=== PATIENT | male | born 1980 ===

== ENCOUNTER 2024-09-23 15:27 | Inpatient (IN) | payer SELFPAY ==
--- OUTSIDE RECORDS SUMMARY | 2024-09-22 11:45 | XMS_ITS | Encounter Summary ---
Author Organization [facility] Address [id number] [place] [id number] Care Team Providers Care Pick Up Name Role Phone Physician, No Pcp Primary Care Provider Unavaila ble Reason for Visit * Reason Comments Suicidal X 2 weeks with plan to overdose on medications Encounter Details Date Type Department Care Team ([facility] st Contact Info) Description 09/22/2024 11:45 AM EDT - 09/23/2024 3:11 PM EDT Emergency [facility] Emergency [address] [place] [id number] Ajit Hall MD [address] [place] [address] Baljeet Dhillon MD [address] [place] [address] Yumi Vick DO [address] [place] [address] Suicidal ideation (Primary Dx) Discharge Disposition: Another Health Care Institution Not Defined Social History Tobacco Use Types Packs/Day Years Used Date Smoking Tobacco: Never Assessed Sex and Gender Information Value Date Recorded Sex Assigned at Not on file Legal Sex Male 1:52 PM EDT Gender Identity Not on file Sexual Orientation Not on file documented as of this encounter Last Filed Vital Signs Vital Sign Reading Time Taken Comments Blood Pressure 135/86 09/23/2024 1:11 PM EDT Pulse 76 09/23/2024 1:11 PM EDT Temperature 36.3 C (97.3 F) 09/23/2024 1:11 PM EDT Respiratory Rate 16 09/23/2024 1:11 PM EDT Oxygen Saturation 98% 09/23/2024 1:11 PM EDT Inhaled Oxygen Concentration - - Weight 116 kg (256 lb) 09/22/2024 12:38 PM EDT Height 177.8 cm (5' 10 ) 09/22/2024 12:38 PM EDT Body Mass Index 36.73 09/22/2024 12:38 PM EDT documented in this encounter Functional Status * Are you deaf or do you have serious difficulty hearing? Answer Date of Assessment Author No 09/22/2024 8:44 PM EDT Michael Strange RN * Are you blind or do you have serious difficulty seeing, even when wearing glasses? Answer Date of Assessment Author No 09/22/2024 8:44 PM EDT Michael Strange RN * Do you have serious difficulty walking or climbing stairs? Answer Date of Assessment Author No 09/22/2024 8:44 PM EDT Michael Strange RN * Do you have serious difficulty dressing or bathing? Answer Date of Assessment Author No 09/22/2024 8:44 PM EDT Michael Strange RN * Because of a physical, mental, or emotional condition, do you have serious difficulty doing errandsalone such as visiting the doctor? Answer Date of Assessment Author No 09/22/2024 8:44 PM EDT Michael Strange RN documented as of this encounter Mental Status * Because of a physical, mental, or emotional condition, do you have serious difficulty concentrating, remembering, or making decisions? (5 years old or older) Answer Entry Date Author No 09/22/2024 8:44 PM EDT Michael Strange RN documented in this encounter Medications at Time of Discharge amLODIPine (NORVASC) 10 mg tablet Take 1 tablet (10 mg total) by mouth 1 (one) time each day. 90 each 08/17/2024 11/15/2024 documented as of this encounter Discharge Disposition Disposition Code Departure Means Destination Comment s Another Health Care Institution Not Defined [facility] BLS crew to transport pt to [facility]. RN to RN report given over the phone to TJ Gardiner. Dr. Vaughn is accepting physician. Pt ambulatory to EMS stretcher, departed ED in no acute distress. documented in this encounter Progress Notes * Ramona Dunn RN - 09/23/2024 10:18 AM EDT Pt given toiletries and clean hospital gown to change into. Pt escorted to bathroom and completed gown change and oral hygiene. All toiletries returned intact to this RN and locked with pt's other belongings. Dirty gown received from pt and placed in dirty linen bin. * Racheal Nieves RN - 09/22/2024 11:53 AM EDT BIBA from home with SI x 2 weeks. Recently un housed, reported arguments with ex . Hx of anxiety, depression. Increased feelings of hopelessness, endorses auditory hallucinations. Plan to overdose on medications, ems reported pt had a gun yesterday and wanted to end his life with it. Pt did notfollow through on plan. Pt calm and cooperative for ems. On section 12 from [facility]. * Ajit Hall MD - 09/22/2024 11:38 AM EDT Images from the original note were not included. [facility] EMERGENCY EMERGENCY DEPARTMENT ENCOUNTER CHIEF COMPLAINT Chief Complaint Patient presents with Suicidal X 2 weeks with plan to overdose on medications HISTORY OF PRESENT ILLNESS 44-year-old male with history of GERD, anxiety, depression here for suicidal thoughts. Patient havehistory of concerned about harming himself. Was sent in from [facility] for inpatient psych. Currently, patient complaining of some mild epigastric pain, has history of GERD. No vomiting or diarrhea. PAST MEDICAL HISTORY No past medical history on file. SURGICAL HISTORY No past surgical history on file. CURRENT MEDICATIONS Previous Medications AMLODIPINE (NORVASC) 10 MG TABLET Take 1 tablet (10 mg total) by mouth 1 (one) time each day. ALLERGIES Patient has no known allergies. FAMILY HISTORY No family history on file. SOCIAL HISTORY Social History Socioeconomic History Marital status: Single Spouse name: Not on file Number of children: Not on file Years of education: Not on file Highest education level: Not on file Occupational History Not on file Tobacco Use Smoking status: Not on file Smokeless tobacco: Not on file Substance and Sexual Activity Alcohol use: Not on file Drug use: Not on file Sexual activity: Not on file Other Topics Concern Not on file Social History Narrative Not on file PHYSICAL EXAM Vitals: 09/22/24 1238 BP: (!) 146/98 BP Location: Right arm Patient Position: Sitting Pulse: 83 Resp: 18 Temp: 36.8 ??C (98.2 ??F) TempSrc: Oral SpO2: 94% Weight: 116 kg (256 lb) Height: 1.778 m (70 ) Physical Exam Vitals reviewed. Constitutional: General: He is not in acute distress. Appearance: Normal appearance. He is not ill-appearing. HENT: Head: Normocephalic and atraumatic. Right Ear: External ear normal. Nose: Nose normal. Mouth/Throat: Mouth: Mucous membranes are moist. Pharynx: Oropharynx is clear. Eyes: Extraocular Movements: Extraocular movements intact. Pupils: Pupils are equal, round, and reactive to light. Cardiovascular: Rate and Rhythm: Normal rate and regular rhythm. Pulses: Normal pulses. Heart sounds: Normal heart sounds. Pulmonary: Effort: Pulmonary effort is normal. No respiratory distress. Breath sounds: Normal breath sounds. Abdominal: General: Abdomen is flat. There is no distension. Palpations: Abdomen is soft. Tenderness: There is no abdominal tenderness. Musculoskeletal: General: No swelling or deformity. Normal range of motion. Cervical back: Normal range of motion. Skin: General: Skin is warm and dry. Capillary Refill: Capillary refill takes less than 2 seconds. Neurological: General: No focal deficit present. Mental Status: He is alert and oriented to person, place, and time. Cranial Nerves: No cranial nerve deficit. Sensory: No sensory deficit. Motor: No weakness. DIAGNOSTIC RESULTS Based on the patient's history and physical exam the following labs and radiology studies were ordered in order to evaluate, work-up and determine best course of treatment for the patient. The studies are independently interpreted by me as follow here or in the MDM section or ED course section: Labs Reviewed ACETAMINOPHEN LEVEL - Abnormal Result Value Acetaminophen Level <2.0 (*) ETHANOL - Normal Ethanol Level 5 SALICYLATE LEVEL - Normal Salicylate Level 3.0 CBC AND DIFFERENTIAL Narrative: The following orders were created for panel order CBC and differential. Procedure Abnormality Status --------- ------ CBC auto differential[[id number]] Final result Please view results for these tests on the individual orders. CBC WITH AUTO DIFFERENTIAL WBC 9.7 RBC 5.40 Hemoglobin 15.0 Hematocrit 44.4 MCV 82.7 MCH 27.9 MCHC 33.8 RDW 12.8 Platelets 337 MPV 9.3 NRBC 0.0 NRBC Absolute 0.00 Neutrophils Relative 65.8 Lymphocytes Relative 24.5 Monocytes Relative 5.5 Eosinophils Relative 3.4 Basophils Relative 0.5 Immature Granulocytes Relative 0.3 Neutrophils Absolute 6.37 Lymphocytes Absolute 2.37 Monocytes Absolute 0.53 Eosinophils Absolute 0.33 Basophils Absolute 0.05 Immature Granulocytes Absolute 0.03 COMPREHENSIVE METABOLIC PANEL DRUG ABUSE SCREEN 8A PANEL, URINE BUPRENORPHINE SCREEN, URINE PHENCYCLIDINE, URINE METHADONE SCREEN, URINE No orders to display I personally reviewed the patient's images and agree with radiologist interpretation unless otherwise noted here or in ED course or MDM section. EMERGENCY DEPARTMENT COURSE and DIFFERENTIAL DIAGNOSIS/MDM: Clinical Impressions as of 09/22/241340 Suicidal ideation MDM Patient here for SI. Initial vital signs are interpreted by myself as normal. Patient given famotidine for GERD. Lab work unremarkable. Patient pending placement. Procedures Ajit Hall MD 09/22/24 1341 The patient is being signed out at the end of shift to the oncoming provider, Dr. Baljeet Dhillon Initial work up, treatment and stabilization is documented above Ongoing monitoring of patient in place. Patient is pending placement CONSULTS: None FINAL IMPRESSION DIAGNOSES: 1. Suicidal ideation Ajit Hall MD (electronically signed) 2:33 PM EDT 09/22/24 Ajit Hall MD 09/22/24 9433 * Yumi Vick DO - 09/22/2024 11:38 AM EDT ASSUMED CARE NOTE Patient care endorsed to me by Dr. Dhillon Patient is a 44-year-old male with history of anxiety and depression being evaluated for concern ofsuicidal ideation. Please see previous providers notes for details. Plan at signout is patient has been medically cleared and pending evaluation by crisis and further recommendations. On my evaluation patient has resting comfortably on stretcher monitor suicidal precautions visitingwith his daughter currently. Asymptomatic cardiac symptoms. However vital signs are notable for hypertension. Workup reveals positive urine drug screen for cocaine and cannabinoids. Unremarkable chemistries and CBC without evidence of endorgan damage. I have obtained a twelve-lead EKG and is my independent impression that this is normal sinus rhythmwith ventricular rate 92 bpm. Normal axis. Prolonged QT of 378 ms. No evidence of acute myocardial ischemia or infarction. Patient previously received amlodipine 10 mg. This time given 0.2 mg of Catapres orally. Behavioral health has recommended inpatient therapy. He has been accepted to [place] under Dr. Vaughn. Patient is stable for transfer. IMPRESSION: Suicidal ideations DISPOSITION: Transfer to another facility Yumi Vick DO 09/23/24 1304 * Sunshine Suh - 09/22/2024 11:20 AM EDT Assessed in the community by [facility] and found appropriate for inpatient level of care. Patient reports panic attacks, depression, anxiety. Passive SI doesn't want to live anymore . Patient has a history of trauma, is homeless, daily cocaine use. documented in this encounter Plan of Treatment Pending Results Name Type Priority Associated Diagnoses Date /Time ECG 12 lead ECG STAT 09/23/2024 10 :46 AM EDT documented as of this encounter Procedures Procedure Name Priority Date/Time Associated Diagnosis Comments URINALYSIS WITH REFLEX MICROSCOPIC STAT 09/23/2024 11:58 AM EDT URINALYSIS WITH REFLEX MICROSCOPIC STAT 09/23/2024 11:58 AM EDT ECG 12-LEAD STAT 09/23/2024 10:46 AM EDT DRUG ABUSE SCREEN 8A PANEL, URINE STAT 09/22/2024 2:17 PM EDT BUPRENORPHINE SCREEN, URINE STAT 09/22/2024 2:17 PM EDT METHADONE SCREEN, URINE STAT 09/22/2024 2:17 PM EDT PHENCYCLIDINE, URINE STAT 09/22/2024 2:17 PM EDT CBC WITH AUTO DIFFERENTIAL STAT 09/22/2024 12:40 PM EDT CBC AND DIFFERENTIAL STAT 09/22/2024 12:40 PM EDT ETHANOL STAT 09/22/2024 12:40 PM EDT ACETAMINOPHEN LEVEL STAT 09/22/2024 1 2:40 PM EDT SALICYLATE LEVEL STAT 09/22/2024 12:4 0 PM EDT COMPREHENSIVE METABOLIC PANEL STAT 09/22/2024 12:40 PM EDT documented in this encounter Results * (ABNORMAL) Urinalysis with reflex microscopic (09/23/2024 11:58 AM EDT) [facility] Specific [place] Urine 1.018 1.003 - 1.030 LAB URINALYSIS - AUTOMATED METHOD 09/23/2024 12:13 PM [facility] pH, Urine 8.0 5.0 - 8.0 pH LAB URINALYSIS - AUTOMATED METHOD 09/23/2024 12:13 PM [facility] Leukocytes, Urine Negative Negative LAB URINALYSIS - AUTOMATED METHOD 09/23/2024 12:13 PM [facility] Nitrite, Urine Negative Negative LAB URINALYSIS - AUTOMATED METHOD 09/23/2024 12:13 PM [facility] Protein, Urine Negative <=Trace mg/dL LAB URINALYSIS - AUTOMATED METHOD 09/23/2024 12:13 PM [facility] Glucose, Urine 100(A) Negative mg/dL LAB URINALYSIS - AUTOMATED METHOD 09/23/2024 12:13 PM EDT [facility] Ketones, Urine Negative Negative mg/dL LAB URINALYSIS - AUTOMATED METHOD 09/23/2024 12:13 PM EDT [facility] Urobilinogen, Urine 1.0 0.2 - 1.0 mg/dL LAB URINALYSIS - AUTOMATED METHOD 09/23/2024 12:13 PM EDT [facility] Bilirubin, Urine Negative Negative LAB URINALYSIS - AUTOMATED METHOD 09/23/2024 12:13 PM EDT [facility] Blood, Urine Negative Negative LAB URINALYSIS - AUTOMATED METHOD 09/23/2024 12:13 PM EDT [facility] Urine Urine specimen obtained by clean catch procedure / Unknown Non-blood Collection / Unknown 09/23/2024 11:58 AM EDT 09/23/2024 12:09 PM EDT us Yumi Vick DO LAB URINE ORDERABLES Final Re sult [facility] [address] [place] [address], [place] [phone] * Methadone, urine (09/22/2024 2:17 PM EDT) Methadone Screen, Urine Negative Negative LAB CHEMISTRY METHOD 09/22/2024 3:14 PM EDT [facility] Comment: Assay cutoff 300 ng/mL Semi-quantitative assay for screening purposes only. Unconfirmed screening result should not be used for non-medical purposes. *ALTERNATE METHOD CONFIRMATION DONE UPON REQUEST ONLY* Urine Urine specimen obtained by clean catch procedure / Unknown Non-blood Collection / Unknown 09/22/2024 2:17 PM EDT 09/22/2024 2:41 PM EDT Ajit Hall MD LAB URINE ORDERABLES Final Resul t [facility] [address] [place] [address], [place] [phone] * Phencyclidine, urine (09/22/2024 2:17 PM EDT) PCP Scrn, Ur Negative Negative LAB CHEMISTRY METHOD 09/22/2024 3:14 PM EDT [facility] Comment: Assay cutoff 25 ng/mL Semi-quantitative assay for screening purposes only. Unconfirmed screening result should not be used for non-medical purposes. *ALTERNATE METHOD CONFIRMATION DONE UPON REQUEST ONLY* Urine Urine specimen obtained by clean catch procedure / Unknown Non-blood Collection / Unknown 09/22/2024 2:17 PM EDT 09/22/2024 2:41 PM EDT us Ajit Hall MD LAB URINE ORDERABLES Final Resul t Performing Organization Address [facility] de Phone Number [facility] [address] [place] [address], [place] [phone] * Buprenorphine screen, urine (09/22/2024 2:17 PM EDT) Buprenorphine Screen Urine Negative Negative LAB CHEMISTRY METHOD 09/22/2024 3:14 PM EDT [facility] Urine Urine specimen obtained by clean catch procedure / Unknown Non-blood Collection / Unknown 09/22/2024 2:17 PM EDT 09/22/2024 2:41 PM EDT Narrative [facility] - 09/22/2024 3:14 PM EDT Assay cutoff 5 ng/mL Semi-quantitative assay for screening purposes only. Unconfirmed screening result should not be used for non-medical purposes. *ALTERNATE METHOD CONFIRMATION DONE UPON REQUEST ONLY* us Ajit Hall MD LAB URINE ORDERABLES Final Resul t Performing Organization Address [facility]/ZIP Co de Phone Number [facility] [address] [place] [address], [place] [phone] * (ABNORMAL) Drug abuse screen 8a panel, urine (09/22/2024 2:17 PM EDT) [facility] Amphetamine Screen, Ur Negative Negative LAB CHEMISTRY METHOD 5 3:14 PM [facility] Comment:Certain OTC medicati ons containing ephedrine, phenylephrine, pseudoephedrine and phenylpropanolamine can cause false positive results. Barbiturate Screen, Ur Negative Negative LAB CHEMISTRY METHOD 5 3:14 PM EDT [facility] Benzodiazepine Screen, Ur Negative Negative LAB CHEMISTRY METHOD 5 3:14 PM [facility] Cocaine Screen, Ur Positive(A ) Negative LAB CHEMISTRY METHOD 5 3:14 PM [facility] Opiate Screen, Ur Negative Negative LAB CHEMISTRY METHOD 5 3:14 PM [facility] Cannabinoid (THC) Screen, Ur Positive(A ) Negative LAB CHEMISTRY METHOD 3:14 PM [facility] Comment:Specimens from patie nts taking pantoprazole sodium (Protonix) have been shown to produce false positive results. Oxycodone Screen, Ur Negative Negative LAB CHEMISTRY METHOD 5 3:14 PM [facility] Fentanyl, Ur Negative Negative LAB CHEMISTRY METHOD 5 3:14 PM [facility] Urine Urine specimen obtained by clean catch procedure / Unknown Non-blood Collection / Unknown 09/22/2024 2:17 PM EDT 09/22/2024 2:41 PM EDT [facility] - 09/22/2024 3:14 PM EDT Assay cutoffs: Amphetamines 1000 ng/mL Barbiturates 200 ng/mL Benzodiazepines 200 ng/mL Cocaine 300 ng/mL Fentanyl 1 ng/mL Opiates 300 ng/mL Oxycodone 100 ng/mL THC 50 ng/mL Semi-quantitative assay for screening purposes only. Unconfirmed screening result should not be used for non-medical purposes. *ALTERNATE METHOD CONFIRMATION DONE UPON REQUEST ONLY* us Ajit Hall MD LAB URINE ORDERABLES Final Resul t [facility] [address] [place] [address], [place] [phone] * CBC auto differential (09/22/2024 12:40 PM EDT) WBC 9.7 4.8 - 10.8 K/mcL LAB HEMETOLOGY METHOD 09/22/2024 1:12 PM EDT [facility] RBC 5.40 4.50 - 5.50 M/mcL LAB HEMETOLOGY METHOD 09/22/2024 1:12 PM EDT [facility] Hemoglobin 15.0 13.5 - 17.5 g/dL LAB HEMETOLOGY METHOD 09/22/2024 1:12 PM EDT [facility] Hematocrit 44.4 42.0 - 54.0 % LAB HEMETOLOGY METHOD 09/22/2024 1:12 PM EDT [facility] MCV 82.7 79.0 - 98.0 FL LAB HEMETOLOGY METHOD 09/22/2024 1:12 PM EDT [facility] MCH 27.9 27.0 - 32.0 pcg LAB HEMETOLOGY METHOD 09/22/2024 1:12 PM EDT [facility] MCHC 33.8 32.0 - 37.0 g/dL LAB HEMETOLOGY METHOD 09/22/2024 1:12 PM EDT [facility] RDW 12.8 11.0 - 15.0 % LAB HEMETOLOGY METHOD 09/22/2024 1:12 PM EDT [facility] Platelets 337 130 - 400 K/mcL LAB HEMETOLOGY METHOD 09/22/2024 1:12 PM EDT [facility] MPV 9.3 7.0 - 11.0 FL LAB HEMETOLOGY METHOD 09/22/2024 1:12 PM EDT [facility] NRBC 0.0 <1.0 % LAB HEMETOLOGY METHOD 09/22/2024 1:12 PM [facility] NRBC Absolute 0.00 <0.10 K/mcL LAB HEMETOLOGY METHOD 09/22/2024 1:12 PM [facility] Neutrophils Relative 65.8 % LAB HEMETOLOGY METHOD 09/22/2024 1:12 PM [facility] Lymphocytes Relative 24.5 % LAB HEMETOLOGY METHOD 09/22/2024 1:12 PM [facility] Monocytes Relative 5.5 % LAB HEMETOLOGY METHOD 09/22/2024 1:12 PM [facility] Eosinophils Relative 3.4 % LAB HEMETOLOGY METHOD 09/22/2024 1:12 PM [facility] Basophils Relative 0.5 % LAB HEMETOLOGY METHOD 09/22/2024 1:12 PM [facility] Immature Granulocytes Relative 0.3 % LAB HEMETOLOGY METHOD 09/22/2024 1:12 PM [facility] Neutrophils Absolute 6.37 1.50 - 7.00 K/mcL LAB HEMETOLOGY METHOD 09/22/2024 1:12 PM [facility] Lymphocytes Absolute 2.37 1.00 - 5.00 K/mcL LAB HEMETOLOGY METHOD 09/22/2024 1:12 PM [facility] Monocytes Absolute 0.53 0.20 - 1.00 K/mcL LAB HEMETOLOGY METHOD 09/22/2024 1:12 PM [facility] Eosinophils Absolute 0.33 0.00 - 0.50 K/mcL LAB HEMETOLOGY METHOD 09/22/2024 1:12 PM [facility] Basophils Absolute 0.05 0.00 - 0.20 K/[facility] LAB HEMETOLOGY METHOD 09/22/2024 1:12 PM EDT [facility] Immature Granulocytes Absolute 0.03 0.00 - 0.03 K/[facility] LAB HEMETOLOGY METHOD 09/22/2024 1:12 PM EDT [facility] Blood Venous blood specimen / Unknown Venipuncture / Unknown 09/22/2024 12:40 PM EDT 09/22/2024 1:03 PM EDT us Ajit Hall MD LAB BLOOD ORDERABLES Final Resul t Performing Organization Address City/[facility]/ZIP Co de Phone Number [facility] [address] [place] [address], [place] [phone] * Salicylate level (09/22/2024 12:40 PM EDT) Salicylate Level 3.0 2.0 - 29.0 mg/dL LAB CHEMISTRY METHOD 09/22/2024 1:39 PM EDT [facility] Blood Venous blood specimen / Unknown Venipuncture / Unknown 09/22/2024 12:40 PM EDT 09/22/2024 1:03 PM EDT us Ajit Hall MD LAB BLOOD ORDERABLES Final Resul t [facility] [address] [place] [address], [place] [phone] * (ABNORMAL) Acetaminophen level (09/22/2024 12:40 PM EDT) Acetaminophen Level <2.0(L) 10.0 - 30.0 mcg/mL LAB CHEMISTRY METHOD 09/22/2024 1:39 PM EDT [facility] Blood Venous blood specimen / Unknown Venipuncture / Unknown 09/22/2024 12:40 PM EDT 09/22/2024 1:03 PM EDT us Ajit Hall MD LAB BLOOD ORDERABLES Final Resul t Performing Organization Address City/[facility]/ZIP Co de Phone Number [facility] [address] [place] [address], [place] [phone] * Ethanol (09/22/2024 12:40 PM EDT) Pathologist [facility] Ethanol Level 5 0 - 10 mg/dL LAB CHEMISTRY METHOD 09/22/2024 1:39 PM EDT [facility] Blood Venous blood specimen / Unknown Venipuncture / Unknown 09/22/2024 12:40 PM EDT 09/22/2024 1:03 PM EDT us Ajit Hall MD LAB BLOOD ORDERABLES Final Resul t Performing Organization Address [facility]/ZIP Co de Phone Number [facility] [address] [place] [address], [place] [phone] * (ABNORMAL) Comprehensive metabolic panel (09/22/2024 12:40 PM EDT) [facility] Sodium 142 133 - 145 mmol/L LAB CHEMISTRY METHOD 09/22/2024 1:40 PM EDT [facility] Potassium 3.8 3.5 - 5.5 mmol/L LAB CHEMISTRY METHOD 09/22/2024 1:40 PM EDT [facility] Chloride 108 96 - 110 mmol/L LAB CHEMISTRY METHOD 09/22/2024 1:40 PM EDT [facility] CO2 30 21 - 32 mmol/L LAB CHEMISTRY METHOD 09/22/2024 1:40 PM EDT [facility] Anion Gap 4 3 - 11 LAB CHEMISTRY METHOD 09/22/2024 1:40 PM EDT [facility] Glucose 112(H) 70 - 100 mg/dL LAB CHEMISTRY METHOD 09/22/2024 1:40 PM [facility] BUN 11 5 - 25 mg/dL LAB CHEMISTRY METHOD 09/22/2024 1:40 PM [facility] Creatinine 1.23 0.70 - 1.30 mg/dL LAB CHEMISTRY METHOD 09/22/2024 1:40 PM [facility] eGFR 75 >=60 mL/min/1. 73m2 LAB CHEMISTRY METHOD 09/22/2024 1:40 PM [facility] Comment:Calculation based on the Chronic Kidney Disease Epidemiology Collaboration (CKD-EPI) equation refit without adjustment for race. BUN/Creatinine Ratio 8.9 LAB CHEMISTRY METHOD 09/22/2024 1:40 PM [facility] Calcium 9.3 8.5 - 10.5 mg/dL LAB CHEMISTRY METHOD 09/22/2024 1:40 PM [facility] AST (SGOT) 11 10 - 42 unit/L LAB CHEMISTRY METHOD 09/22/2024 1:40 PM [facility] ALT (SGPT) 25 10 - 60 unit/L LAB CHEMISTRY METHOD 09/22/2024 1:40 PM [facility] Alkaline Phosphatase 81 42 - 121 unit/L LAB CHEMISTRY METHOD 09/22/2024 1:40 PM [facility] Total Protein 6.5 6.0 - 8.0 g/dL LAB CHEMISTRY METHOD 09/22/2024 1:40 PM [facility] Albumin 3.5 3.2 - 5.0 g/dL LAB CHEMISTRY METHOD 09/22/2024 1:40 PM [facility] Total Bilirubin 0.3 0.0 - 1.4 mg/dL LAB CHEMISTRY METHOD 09/22/2024 1:40 PM [facility] Blood Venous blood specimen / Unknown Venipuncture / Unknown 09/22/2024 12:40 PM EDT 09/22/2024 1:03 PM EDT us Ajit Hall MD LAB BLOOD ORDERABLES Final Resul t [facility] [address] [place] [address], documented in this encounter Visit Diagnoses Diagnosis Suicidal ideation- Primary documented in this encounter Administered Medications Active Administered Medications - up to 3 most recent administrations Medication Order MAR Action Action Date Dose Rate Site amLODIPine (NORVASC) tablet 10 mg 10 mg, oral, Daily, First dose on Fri09/22/24 at 1543 Given 09/23/2024 9:14 AM EDT 10 mg Given 09/22/2024 3:53 PM EDT 10 mg famotidine (PEPCID) tablet 20 mg 20 mg, oral, 2 times daily, First dose on Fri09/22/24 at 1340 Given 09/23/2024 9:14 AM EDT 20 mg Given 09/22/2024 8:35 PM EDT 20 mg Given 09/22/2024 2:34 PM EDT 20 mg traZODone (DESYREL) tablet 50 mg 50 mg, oral, Nightly PRN, sleep, Starting on Fri09/22/24 at 2041 Given 09/22/2024 8:46 PM EDT 50 mg Inactive Administered Medications - up to 3 most recent administrations Medication Order MAR Action Action Date Dose Rate Site acetaminophen (TYLENOL) tablet 1,000 mg 1,000 mg, oral, Once, On Fri09/23/24 at 1038, For 1 dose Given 09/23/2024 10:54 AM EDT 1,000 mg cloNIDine (CATAPRES) tablet 0.2 mg 0.2 mg, oral, Once, On Fri09/23/24 at 1038, For 1 dose Given 09/23/2024 10:54 AM EDT 0.2 mg LORazepam (ATIVAN) tablet 1 mg 1 mg, oral, Once, On Fri09/22/24 at 1543, For 1 dose Given 09/22/2024 3:53 PM EDT 1 mg documented in this encounter Active and Recently Administered Medications Times are shown in EDT. Scheduled Medication Order 09/21/2024 09/22/2024 09/23/2024 acetaminophen (TYLENOL) tablet 1,000 mg (COMPLETED) 1,000 mg, oral, Once, On Fri09/23/24 at 1038, For 1 dose 1054 (Given - Provid er: Ramona Dunn RN) amLODIPine (NORVASC) tablet 10 mg 10 mg, oral, Daily, First dose on Fri09/22/24 at 1543 1553 (Given - Provider: Racheal Nieves RN) 0914 (Given - Provider: Ramona Dunn, RN) cloNIDine (CATAPRES) tablet 0.2 mg (COMPLETED) 0.2 mg, oral, Once, On Fri09/23/24 at 1038, For 1 dose 1054 (Given - Provid er: Ramona Dunn RN) famotidine (PEPCID) tablet 20 mg 20 mg, oral, 2 times daily, First dose on Fri09/22/24 at 1340 1434 (Given - Provider: Racheal Nieves RN)2035 (Given - Provider: Jody Strange RN) 0914 (Given - Provider: Ramona Dunn, TJ)2100 (Due) LORazepam (ATIVAN) tablet 1 mg (COMPLETED) 1 mg, oral, Once, On Fri09/22/24 at 1543, For 1 dose 1553 (Given - Provider: Racheal Nieves RN) PRN Medication Order 09/21/2024 09/22/2024 09/23/2024 traZODone (DESYREL) tablet 50 mg 50 mg, oral, Nightly PRN, sleep, Starting on Fri09/22/24 at 2041 2046 (Given - Provider: Giorgio Strange RN) documented in this encounter Orders Diet Count Last Ordered Date First Orde red Date ADULT DIET 1 09/22/2024 Nursing Count Last Ordered Date First Orde red Date VITAL SIGNS 1 09/23/2024 Precaution Count Last Ordered Date First Orde red Date SUICIDE PRECAUTIONS 1 09/22/2024 Privilege Level Count Last Ordered Date First O rdered Date 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
[2024-09-23 15:45] VITALS: BP 137/92; PULSE 89; TEMP 36.4; O2SAT 98
[2024-09-23 16:15] VITALS: BMI 34.4
--- NOTE | 2024-09-23 18:34 | PC.ADMIT ---
Mr. Srinath Armendariz is a 44 y.o. Male who was BIBA from [facility] at 3:40pm on a section 12 for suicidal ideation, increased hopelessness and AH.? Per crisis notes and nurse to nurse, he has been fighting with his ex- and? recently became unhoused and has been living out of his car for about 2 weeks. During that time he used cocaine 5 times, but had never used it before and has not used it since. Per crisis note, he had a plan to overdose on meds or shoot himself with a gun. He has a history of anxiety and depression but has not been on meds for over a year. Medically, Srinath has GERD and HTN.? Once on the unit he was cooperative with skin/ safety check. Cooperative with admission process. Srinath adamantly denied SI and when asked about the report about a gun and meds, he said that both were over a year ago when they lived in [place], and he did not actually do either, and he and his immediately sold the guns. He also adamantly denied that he has any history of AH. He was under the impression that he was being admitted to a rehab for his drug use and was very upset that he was sectioned 12?d for SI. Srinath decided to remain on a Section 12B and is in room 512-2. Safety checks q 15 minutes.
--- NOTE | 2024-09-23 19:56 | P.HPPS_ITS ---
HPI Date of Service: 09/23/24 Chief Complaint: Depression, Anxiety Disorder Sources of Information: patient interviewed, chart reviewed and crisis/core team assessment reviewed HPI Subjective Notes: Rodrigues Warning and Section 12B Healthcare Proxy: No Guardianship: No Medical Problems Affecting Mental Status: No Narrative: Patient is a 44 years old single bilingual Cuban and Togolese-speaking male refer from [facility] for suicidal thoughts. Per [facility] crisis, patient has been having suicidal thoughts for 2 weeks. Recently unhoused, argument with ex-. Increased feeling of hopelessness, also endorsed auditory hallucinations. SI with plan to overdose on meds. EMS also reported that patient had a gun yesterday and wanted to end his life with it. However patient did not follow-through on plan Met with patient at 18:50, reports that crisis was called and he was assessed a couple of days ago. They said they are waiting for the bed and now I am here . Patient reports that he does not need to be here. Recently moved to [place] from [place] for about 2 months. He and his have been arguing but not big about bills/financial. He has left the house and had been slept in the car for 2 weeks. While he was away, he did cocaine 2-3 days last week (1st time use KRISHAN) and recognized that is was not right thing to do, therefore he came back home where he was assessed and sent to emergency room. Not at risk of W/D. Denies access to gun or lethal devices at home. Denies legal issues. Precipitants: Increase financial stress that make him and his partner arguing more lately in the past 2 weeks. Recently moved from [place] to [place]. Reports housing is stable. Denies suicidal thoughts, he also denies suicidal thoughts recently, history of suicidal many years ago, denies suicide attempts. Denies hallucinations history. Nose psychiatric admission history, no detox history, no SI/SIB/HI/AVH during this assessment. He does not appear to be psychotic or responding to internal stimuli. Mood is okay with some depression rated 2/10 on the scales 0-10. Reports taking medications for depression while was in [place] but can not recall the names. He also seen a psychiatrist and therapist and PCP in [place]. Nursing called [facility] in [place] where he gave the address, no record of him taking medication. His reports is completely different from the crisis reports. He appeared to be reliable person. And he believes that he does not need to be here, he does not understand why they sent him here, therefore he does not signed the CV. He is aware that he can sign CV anytime if he changes his mind. 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 Sleep has been rough, trouble staying asleep Dx: At this time, with current presentation, he meets criteria for depression, and adjustment with depression/anxiety. He reports hx of anxiety and depression. Past Psychiatric History: No prior IPLOC admission. No PHP or Detox hx Have been seen psychiatrist and therapist in [place]. Recently move to [place] for 2 months. Cannot recall medication trials or current medication list but report he takes medication while in [place]. No suicide attempts hx. Medical Evaluation Reviewed: Hospitalist Jason Pending [facility] Narrative: Anxiety Depression HTN Hyperlipidemia Narrative: No surgical history Family History: Denies. Denies mental health issues. He has not sure if anyone in the family have substance use. His family is in [place]. Social History: He has been with the current partner for 24 years but never . They have 2 children together, 18 years old son and 13 years old daughter. Recently moved from [place] to [place] at they can not afford to expensive cost of living in [place]. He used to live in [place] before. Graduated from 10th grade. 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 However he has been using 2-3 d ays last week, sniffed it. Reports smoked marijuana on time ago. However U tox positive for cocaine and THC. He is more up to 1 pack per day. Denies other substance use. Trauma History: Denies Diagnostics Vital Signs (24Hr): Vital Signs - 24 hr 09/23/24 15:45 Temperature 97.6 F Pulse Rate 89 Blood Pressure 137/92 H Pulse Oximetry 98 Oxygen Delivery Method Room Air BMI result Body Mass Index 34.4 Meds/Allergies Meds Home Medications ?Medication ?Instructions ?Recorded ?Confirmed ?Type amlodipine 10 mg PO 1XD 09/23/24 History Allergies Allergies Allergy/AdvReac Type Severity Reaction Status Date / Time No Known Allergies Allergy Verified 09/23/24 17:34 Mental Status Exam Mental Status Exam Narrative: Patient is alert and oriented x4 ; behavior is cooperative, friendly with mild to moderate and anxiety; patient is not in distress; dressed in hospital attire with kempt hair, adequate hygiene; mood is described as I am ok and affect incongruent; eye contact appropriate; Speech is normal rate, volume and prosody and not pressured; no psychomotor agitation/retardation present; thought process is organized and goal directed; Thought content is WNL, pertinent to relevant topics and without any delusional content, paranoid ideation or grandiosity; denies any SI/SIB/HI. Denies AH and there is no evidence of perceptual disturbance. Patient's insight and judgment poor. Assessment & Plan Assessment & Plan (1) Cocaine use: Status: Acute Code(s): F14.90 - Cocaine use, unspecified, uncomplicated (2) Adjustment disorder with depressed mood: Status: Acute Code(s): F43.21 - Adjustment disorder with depressed mood Plan HPI: Patient is a 44 years old single bilingual Cuban and Togolese-speaking male refer from [facility] for suicidal thoughts. Per [facility] crisis, patient has been having suicidal thoughts for 2 weeks with plan to OD on meds. Recently unhoused, argument with ex-. Increased feeling of hopelessness, also endorsed auditory hallucinations. EMS also reported that patient had a gun yesterday and wanted to end his life with it. However patient did not follow- through on plan. at [facility] on the day of admission: Patient denies suicidal thoughts, do not believe he should be here, denies the need to be here, reports mild depression with Risen financial stress. No access to gun at home. No suicide attempts, no suicidal thoughts with plans. He would hope to be discharged soon. Formulation/clinical reasoning: Increase financial stress, recently moved from [place] to [place] for 2 months, some arguing with his partner over Bills/money. Using cocaine for 2 or 3 days after arguing with and left the house slept in the car for 2 weeks. History of depression, anxiety. Currently has no psychiatrist or therapist in [place]. Given the above information, for his own safety, we will be benefit to be in restrictive environment, medication management, and refer patient to outpatient psychiatry for aftercare upon discharge, provide therapeutic environment for coping skills. Hospital course: 09/23/24: Can not verify medication when was taking in [place]. Nursing called 3 different pharmacy and pharmacy, this no record of him taking medications. ?If he is reliable person. Need collateral with family to confirm information. At this time, he feels safe here. Appears to be depressed. Been coughing on and off during admission. Robitussin p.r.n. for cough. Cepacol p.r.n. for sore throat. Other PRNs available for anxiety and depression. Will leave it to attending to decide patient needs to start on antidepressant after collateral with the family. Plan Patient on 15 minute checks for safety. Admitted to M5. Section 12B. He understand that he if he changes his mind he can say CV anytime Work with treatment team to do collateral regarding treatment hx. Contact the hospitalist regarding hospitalist consultation on admission: pending. Patient educated on: diagnosis, medication risk/benefits, substance abuse and therapeutic strategies Informed Consent: understands and further education needed Reason for continued inpatient stay Substantial Risk for: med/psych decompensation Statement Statement: I have reviewed the history and physical and performed a pertinent examination on my patient. No changes have occurred unless specified. If the History and Physical was not performed prior to admission, the Hospitalist's service will be consulted for completing the admission physical. Time Spent With Patient Time: Total time managing care of this patient today ____ minutes.
[2024-09-23 20:26] VITALS: BP 152/96; PULSE 80; RESP 16; TEMP 36.8; O2SAT 97
--- NOTE | 2024-09-23 21:26 | HO.PM.IMCN ---
History of Present Illness Data of Consult Service Date: 09/23/24 Requesting physician: Don Mckinney Primary Care Provider: Unknown Physician HPI Reason for consult: admission H&P Patient is a 44-year-old male with a past medical history significant for hypertension, depression, class 2 obesity and recent cocaine use, transferred from [facility] due to depression with SI. It was reported that the patient was living out of his car for the past 2 weeks as he was arguing with his ex-, use cocaine 5 times but had never used in the past. He had a plan to overdose on meds or shoot himself with a gun. Currently he is denying SI and states that he feels well overall. He denies any chest pain, shortness of breath, nausea, vomiting, abdominal pain, fever, chills or urinary symptoms. No rashes. He does have intermittent swelling of his joints, currently having some swelling in the left ankle, no bruising or recent injury. He also reports a sore throat for the past 2 weeks which has been improving over time, the sore throat is mild, not worse with swallowing, described as scratchy. No associated URI symptoms or sick contacts. Review of Systems Review of Systems: Yes all other systems are reviewed and are negative [facility] Medical History Cocaine use Class 2 obesity Tobacco use disorder Depression HTN (hypertension) Functional capacity: independent ambulation Social History Household Members: None Housing: Homeless Do you presently have visiting nurse or other home services: No Patient Tobacco Use Status: Current everyday Tobacco user Tobacco use type: Cigarette Cigarette Packs Per Day: 1 Cigarettes Per Day: 20.0 Years Smoked: 20 Smoked in Last 30 Days: Yes e-Cigarette/Vaping Use: Never Used Patient Interested in Nicotine Replacement: No Patient Given Instructions on How to Stop Smoking: No Second Hand Smoke Exposure: No Have you been hit, kicked, punched, or otherwise hurt by someone within the past year? If so, by whom?: No Do you feel safe in your current relationship?: Yes Is there a partner from a previous relationship who is making you feel unsafe now?: No Are you made to feel afraid or neglected: No Advance Directives: No Advance Directives Information Provided: No Do you have a plan to hurt others: No Plan Recently lost weight without trying: No How much weight loss: Not applicable Eating poorly because of decreased appetite: No Nutrition screen score: 0 Nutrition Risks: No Nutritional Risk Poor oral hygiene: No Narrative: Smokes 1 pack per day, no alcohol, recent cocaine use however has not used this in the past Meds Allergies Allergy/AdvReac Type Severity Reaction Status Date / Time No Known Allergies Allergy Verified 09/23/24 17:34 Active Medications: Current Medications Acetaminophen (Acetaminophen 325 Mg Tablet) 650 mg PO Q6H PRN PRN Reason: Headache/Pain, Scale 1-10 Al Hydroxide/Mg Hydroxide (Magnesium Hydrox/Alum Hydrox 30 Ml Oral.Susp) 30 ml PO Q6H PRN PRN Reason: Heartburn/Nausea Benzocaine (Throat Lozenge, Medicated Lozenge) 1 lozenge MUCOUS MEM Q2H PRN PRN Reason: Sore Throat Clonidine HCl (Clonidine Hcl 0.1 Mg Tablet) 0.1 mg PO Q4H PRN; Protocol PRN Reason: moderate anxiety Guaifenesin (Guaifenesin 200 Mg/10 Ml 10 Ml Liquid) 10 ml PO Q6H PRN PRN Reason: Cough Hydroxyzine HCl (Hydroxyzine Hcl 25 Mg Tablet) 25 mg PO Q6H PRN PRN Reason: mild anxiety Magnesium Hydroxide (Milk Of Magnesia 30 Ml Oral.Susp) 30 ml PO DAILY PRN PRN Reason: Constipation Nicotine (Nicotine 21 Mg Patch.Td24) 21 mg TRANSDERMA DAILY PRN PRN Reason: smoking cessation Nicotine Polacrilex (Nicotine Polacrilex 2 Mg Gum) 4 mg BUCCAL Q2H PRN PRN Reason: Nicotine Cravings Trazodone HCl (Trazodone Hcl 50 Mg Tablet) 50 mg PO BEDTIME MRX1 PRN PRN Reason: Insomnia Last Admin: 09/23/24 21:16 Dose: 50 mg Home Medications ?Medication ?Instructions ?Recorded ?Confirmed ?Last Taken ?Type amlodipine 10 mg PO 1XD 09/23/24 09/23/24 Unknown History Physical Exam Vital Signs and Narrative: Vital Signs: Last Vital Signs Temp 98.3 F 09/23/24 20:26 Pulse 80 09/23/24 20:26 Resp 16 09/23/24 20:26 BP 152/96 H 09/23/24 20:26 Pulse Ox 97 09/23/24 20:26 O2 Del Method Room Air 09/23/24 20:26 BMI result Body Mass Index 34.4 General: AOx3, no acute distress HEENT: PEERL, tonsils normal without exudates Resp: CTA bilaterally CVS: S1, S2, RRR GI: +BS, NT, no distention Skin: Warm, dry Neuro: Cranial nerves II-XII grossly intact bilaterally. Motor grossly intact bilaterally Extremities: No pitting edema. L ankle with mild edema, no bruising. slight pain with palpation of lateral aspect. walking without difficulty. Psych: Appropriate affect Assessment and Plan (1) Medical clearance for psychiatric admission: Status: Acute (2) Tobacco use disorder: Status: Acute (3) Class 2 obesity: Status: Acute Plan Patient is a 44-year-old male with a past medical history significant for hypertension, depression, class 2 obesity and recent cocaine use, transferred from [facility] due to depression with SI.? mood disorder/SI - plan per psych HTN - continue amlodipine - was taking clonidine at [facility], consider adding if persistent HTN tobacco use disorder - NRT - smoking cessation discussed class 2 obesity - BMI 34.4 - weight loss encouraged sore throat - pt briefly mentioned a scratchy throat for the past 2 weeks, no fever or leukocytosis - able to eat without difficulties - no exudates on exam - if sx worsen or do not continue to improve consider strep test - offered strep test at this time and pt declined, states he is getting better L ankle swelling - non-pitting edema - able to ambulate without difficulty - no brusising on exam - pt reports this is chronic - ice, tylenol, ibuprofen PRN - consider xray if worsening sx Thank you for allowing me to participate in the pt's care. Signing off. Please contact the medical team if any questions or concerns.
[2024-09-24 08:00] VITALS: BP 140/92; PULSE 80; RESP 16; TEMP 36.3; O2SAT 98
--- NOTE | 2024-09-24 08:18 | HO.PM.IMCN ---
History of Present Illness Data of Consult Service Date: 09/24/24 Primary Care Provider: Unknown Physician HPI Reason for consult: Medical H&P 44-year-old male with a past medical history of GERD, hypertension, anxiety and depression, presented to [facility] with increased suicidal thoughts. Patient had a plan to end his life. No other significant past medical history or surgical history noted. Upon review of records patient with no leukocytosis, no anemia. CMP within normal limits. Tox screen positive for cocaine. On exam he is awake and alert. Denies any shortness of breath, dizziness, lightheadedness or any other concerning symptoms. He is ambulating with a steady gait. Hemoglobin A1c is 5.9. Review of Systems Review of Systems: Denies any shortness of breath, chest pain, dizziness, lightheadedness, abdominal pain or discomfort, nausea vomiting or diarrhea PMFSH Medical History Cocaine use Class 2 obesity Tobacco use disorder Depression HTN (hypertension) Functional capacity: independent ambulation Social History Household Members: None Housing: Homeless Do you presently have visiting nurse or other home services: No Patient Tobacco Use Status: Current everyday Tobacco user Tobacco use type: Cigarette Cigarette Packs Per Day: 1 Cigarettes Per Day: 20.0 Years Smoked: 20 Smoked in Last 30 Days: Yes e-Cigarette/Vaping Use: Never Used Patient Interested in Nicotine Replacement: No Patient Given Instructions on How to Stop Smoking: No Second Hand Smoke Exposure: No Currently Displaying Signs/Symptoms of Drug Intoxication Withdrawal: No Have you been hit, kicked, punched, or otherwise hurt by someone within the past year? If so, by whom?: No Do you feel safe in your current relationship?: Yes Is there a partner from a previous relationship who is making you feel unsafe now?: No Are you made to feel afraid or neglected: No Advance Directives: No Advance Directives Information Provided: No Do you have thoughts of harming others: None Do you have a plan to hurt others: No Plan Recently lost weight without trying: No How much weight loss: Not applicable Eating poorly because of decreased appetite: No Nutrition screen score: 0 Nutrition Risks: No Nutritional Risk Poor oral hygiene: No Meds Allergies Allergy/AdvReac Type Severity Reaction Status Date / Time No Known Allergies Allergy Verified 09/23/24 17:34 Active Medications: Current Medications Acetaminophen (Acetaminophen 325 Mg Tablet) 650 mg PO Q6H PRN PRN Reason: Headache/Pain, Scale 1-10 Al Hydroxide/Mg Hydroxide (Magnesium Hydrox/Alum Hydrox 30 Ml Oral.Susp) 30 ml PO Q6H PRN PRN Reason: Heartburn/Nausea Benzocaine (Throat Lozenge, Medicated Lozenge) 1 lozenge MUCOUS MEM Q2H PRN PRN Reason: Sore Throat Clonidine HCl (Clonidine Hcl 0.1 Mg Tablet) 0.1 mg PO Q4H PRN; Protocol PRN Reason: moderate anxiety Guaifenesin (Guaifenesin 200 Mg/10 Ml 10 Ml Liquid) 10 ml PO Q6H PRN PRN Reason: Cough Hydroxyzine HCl (Hydroxyzine Hcl 25 Mg Tablet) 25 mg PO Q6H PRN PRN Reason: mild anxiety Magnesium Hydroxide (Milk Of Magnesia 30 Ml Oral.Susp) 30 ml PO DAILY PRN PRN Reason: Constipation Nicotine (Nicotine 21 Mg Patch.Td24) 21 mg TRANSDERMA DAILY PRN PRN Reason: smoking cessation Nicotine Polacrilex (Nicotine Polacrilex 2 Mg Gum) 4 mg BUCCAL Q2H PRN PRN Reason: Nicotine Cravings Trazodone HCl (Trazodone Hcl 50 Mg Tablet) 50 mg PO BEDTIME MRX1 PRN PRN Reason: Insomnia Last Admin: 09/23/24 21:16 Dose: 50 mg Home Medications ?Medication ?Instructions ?Recorded ?Confirmed ?Last Taken ?Type amlodipine 10 mg PO 1XD 09/23/24 09/23/24 Unknown History Physical Exam Vital Signs and Narrative: Vital Signs: Last Vital Signs Temp 98.3 F 09/23/24 20:26 Pulse 80 09/23/24 20:26 Resp 16 09/23/24 20:26 BP 152/96 H 09/23/24 20:26 Pulse Ox 97 09/23/24 20:26 O2 Del Method Room Air 09/23/24 20:26 BMI result Body Mass Index 34.4 Alert and oriented X3, able to give good history. Neuro: CN II-X11 intact, no deficits, visual acuity intact EYES: PERRLA, EOM intact ENT: Hearing intact, lips moist, nares patent no epistaxis Cardiac: S1 S2 RRR, No ectopy Pulmonary: lungs clear to auscultation, No increased WOB. Abdominal: BS active in all 4 quadrants, no guarding or tenderness MSK: Strength 5/5 upper and lower extremities : Deferred Extremities: No edema in lower extremities Psych: mood stable, Quiet and cooperative. Skin: Warm and dry, Intact Results Labs 09/24/24 08:23 Assessment and Plan (1) HTN (hypertension): Status: Acute Plan Depression with suicidal ideation/adjustment disorder with depressed mood/history of cocaine use Treatment per psychiatric team Hypertension Amlodipine 10 mg daily Thank you for allowing me to participate in the care of this patient. Signing off at this time. Please reconsult of any acute concerns or issues arise
[2024-09-24 09:09] LABS: Hemoglobin A1C 163.1874 umol/L; Total Hemoglobin (HGBA1C) 3978.8464 umol/L
[2024-09-24 09:16] LABS: Alanine Aminotransferase 19 U/L (0-40); Albumin Level 4.3 g/dL (3.5-5.0); Alkaline Phosphatase 74 U/L (39-117); Anion Gap 12 (12-20); Aspartate Amino Transferase 22 U/L (5-37); Blood Urea Nitrogen 14 mg/dL (9-16); Calcium 9.3 mg/dL (8.4-10.2); Carbon Dioxide 26 mmol/L (22-29); Chloride 106 mmol/L (96-108); Cholesterol 175 mg/dL (<200); Creatinine Clr Calc Pharmacy 117.5; Estimated Glomerular Filt Rate > 60; HDL Cholesterol 28 mg/dL (>40); Potassium 4.0 mmol/L (3.3-5.1); Sodium 140 mmol/L (135-145); Total Protein 7.2 g/dL (6.5-8.0); Triglycerides 298 mg/dL (<150)
--- NOTE | 2024-09-24 11:46 | HO.PSYCHPN ---
Subjective Subjective Date of Service: 09/24/24 Reason For Visit: Depression, Anxiety Disorder Interim History: Met with patient; discussed with team; reviewed chart (and met with patient and his yesterday when pt got to unit) pt is calm, organized in speech and behavior, appropriate with peers and staff. hx of mild depression until 2 months ago had severe depressive episode...but no SI. Depression partial cleared up but he continued to struggle and a few weeks ago he started to use cocaine for first time. He had an verbal argument with and 2 weeks ago he decided to leave the house, just focus on his job. Depression kicked in, anxiety kicked in and he continued to use cocaine; last time used was about 2 days prior to going to ED. me and my called crisis to get help with anxiety and depression. They asked me questions about my anxiety and depression, if i had thoughts...if i was abusing drugs. They said we don't have a room but hospital has a room so we'll call an ambulance... He says the only SI comment he made to crisis was when he referred to something that happened in the past. denies he said he had any SI at all. And he denies he had any AH. He says years ago, he had SI which he says was fleeting and situational and he made a comment (which he says was made without any intent or plans) about using a gun, but that was 3-4 years ago and not since... 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 if life gives you a lesson, it's good if you earn it agrees depression/anxiety enough to derail his life for a few weeks and though he found his way back no hx of micaela, trauma; no hx of alcohol abuse or drug abuse (other than mentioned) Diagnostics Vital Signs (24Hr): Vital Signs - 24 hr 09/23/24 15:45 09/23/24 20:26 Temperature 97.6 F 98.3 F Pulse Rate 89 80 Respiratory Rate 16 Blood Pressure 137/92 H 152/96 H Pulse Oximetry 98 97 Oxygen Delivery Method Room Air Room Air BMI result Body Mass Index 34.4 Labs 09/24/24 08:23 Labs: Laboratory Results - last 48 hr 09/24/24 08:23 Sodium 140 Potassium 4.0 Chloride 106 Carbon Dioxide 26 Anion Gap 12 BUN 14 Creatinine 1.00 Estim Creat Clear Calc 117.5 Estimated GFR > 60 Random Glucose 120 H Estimat Average Glucose 123 Hemoglobin A1c % 5.9 Calcium 9.3 Total Bilirubin 0.3 AST 22 ALT 19 Alkaline Phosphatase 74 Total Protein 7.2 Albumin 4.3 Triglycerides 298 H Cholesterol 175 LDL Cholesterol, Calc 88 HDL Cholesterol 28 L Medications Medications Current Medications Acetaminophen (Acetaminophen 325 Mg Tablet) 650 mg PO Q6H PRN PRN Reason: Headache/Pain, Scale 1-10 Al Hydroxide/Mg Hydroxide (Magnesium Hydrox/Alum Hydrox 30 Ml Oral.Susp) 30 ml PO Q6H PRN PRN Reason: Heartburn/Nausea Benzocaine (Throat Lozenge, Medicated Lozenge) 1 lozenge MUCOUS MEM Q2H PRN PRN Reason: Sore Throat Clonidine HCl (Clonidine Hcl 0.1 Mg Tablet) 0.1 mg PO Q4H PRN; Protocol PRN Reason: moderate anxiety Guaifenesin (Guaifenesin 200 Mg/10 Ml 10 Ml Liquid) 10 ml PO Q6H PRN PRN Reason: Cough Hydroxyzine HCl (Hydroxyzine Hcl 25 Mg Tablet) 25 mg PO Q6H PRN PRN Reason: mild anxiety Magnesium Hydroxide (Milk Of Magnesia 30 Ml Oral.Susp) 30 ml PO DAILY PRN PRN Reason: Constipation Nicotine (Nicotine 21 Mg Patch.Td24) 21 mg TRANSDERMA DAILY PRN PRN Reason: smoking cessation Nicotine Polacrilex (Nicotine Polacrilex 2 Mg Gum) 4 mg BUCCAL Q2H PRN PRN Reason: Nicotine Cravings Trazodone HCl (Trazodone Hcl 50 Mg Tablet) 50 mg PO BEDTIME MRX1 PRN PRN Reason: Insomnia Last Admin: 09/23/24 21:16 Dose: 50 mg Allergies Allergies Allergy/AdvReac Type Severity Reaction Status Date / Time No Known Allergies Allergy Verified 09/23/24 17:34 Assessment & Plan Assessment & Plan (1) Medical clearance for psychiatric admission: Status: Acute Code(s): Z00.8 - Encounter for other general examination (2) Tobacco use disorder: Status: Acute Code(s): F17.200 - Nicotine dependence, unspecified, uncomplicated (3) Class 2 obesity: Status: Acute Code(s): E66.812 - Obesity, class 2 Plan Patient is a 44-year-old male with a past medical history significant for hypertension, depression, class 2 obesity and recent cocaine use, transferred from [facility] due to depression with SI.? mood disorder/SI - plan per psych HTN - continue amlodipine - was taking clonidine at [facility], consider adding if persistent HTN tobacco use disorder - NRT - smoking cessation discussed class 2 obesity - BMI 34.4 - weight loss encouraged sore throat - pt briefly mentioned a scratchy throat for the past 2 weeks, no fever or leukocytosis - able to eat without difficulties - no exudates on exam - if sx worsen or do not continue to improve consider strep test - offered strep test at this time and pt declined, states he is getting better L ankle swelling - non-pitting edema - able to ambulate without difficulty - no brusising on exam - pt reports this is chronic - ice, tylenol, ibuprofen PRN - consider xray if worsening sx Thank you for allowing me to participate in the pt's care. Signing off. Please contact the medical team if any questions or concerns. Time Spent With Patient Time: Total time managing care of this patient today ____ minutes.
[2024-09-24 13:18] VITALS: BP 140/90
--- NOTE | 2024-09-24 14:40 | P.DS_ITS ---
DS: Providers Provider Date of Service: 09/24/24 Date of admission: 09/23/24 15:27 Date of discharge: 09/24/24 Primary care physician: Unknown Physician Attending physician on admission: Don Mckinney Consults: 09/23/24 17:47 Consult to Hospitalist Routine Comment: admission physical Consulting Provider[place] [facility] Reason For Exam: admission physical 09/24/24 10:14 Consult to [facility] Routine Consulting Provider: [facility] Attending physician on discharge: Don Mckinney DS: Diagnosis Discharge Diagnosis (1) HTN (hypertension): Status: Acute DS: Medications Discharge Medications Home Medications: Previous Rx's ?Medication ?Instructions ?Recorded amlodipine 10 mg PO 1XD 30 days #30 tab s 09/24/24 amlodipine 10 mg tablet 10 mg PO DAILY 30 days #30 t abs 09/24/24 clonidine HCl 0.1 mg tablet 0.1 mg PO Q4H PRN moderate anxiety 09/24/24 30 days #90 tabs omeprazole 10 mg capsule,delayed 10 mg PO DAILY 30 day s #30 caps 09/24/24 release trazodone 50 mg tablet 50 mg PO BEDTIME PRN Insomni a 30 09/24/24 days #30 tabs Data Data Completed and Pending Completed studies during hospitalization [Text1]: 09/24/24 08:23 Sodium 140 Potassium 4.0 Chloride 106 Carbon Dioxide 26 Anion Gap 12 BUN 14 Creatinine 1.00 Estim Creat Clear Calc 117.5 Estimated GFR > 60 Random Glucose 120 H Estimat Average Glucose 123 Hemoglobin A1c % 5.9 Calcium 9.3 Total Bilirubin 0.3 AST 22 ALT 19 Alkaline Phosphatase 74 Total Protein 7.2 Albumin 4.3 Triglycerides 298 H Cholesterol 175 LDL Cholesterol, Calc 88 HDL Cholesterol 28 L DS: Summary Time Spent with Patient Time attestation: Total time managing care of this patient today ____ minutes. Discharge Plan Discharge Anticipated Discharge Date/Time: 09/24/24 14:40 Patient Disposition: Home, Self-Care Discharge Diagnosis: MDD, recurrent, moderate in full remission Referrals: [facility] [Other] - 1 Week Referral Note: Patient may self present to be evaluated for psychiatry, therapy, and recovery resources. Patient should (walk in) self present Friday to Friday from 10 am-12:00 pm. [facility] [Other] - 1 Week Referral Note: Patient may self-present (walk-in) to be evaluated for psychiatry and therapy services Patient walk in hours at [facility] are Friday through Friday 8am-8pm, and Friday from 9 am-5:00 pm [employer] [facility] [Other] - 1 Week Referral Note: [facility] Resource information Physician,Unknown J [Primary Care Provider, Medical] - 1 Week Discharge Medications: New clonidine HCl 0.1 mg Tablet 0.1 mg PO Q4H PRN (Reason: moderate anxiety) 30 Days Qty: 90 0RF Protocol: Hold for SBP< HOLD for SBP < : 90 trazodone 50 mg Tablet 50 mg PO BEDTIME PRN (Reason: Insomnia) 30 Days Qty: 30 0RF omeprazole 10 mg capsule,delayed release(DR/EC) 10 mg PO DAILY 30 Days Qty: 30 0RF amlodipine 10 mg Tablet 10 mg PO DAILY 30 Days Qty: 30 0RF Protocol: Hold for SBP< HOLD for SBP < : 90 Continued amlodipine 10 mg tablet 10 mg PO 1XD 30 Days Qty: 30 0RF Discharge Orders: Discharge Order (Routine); Ordered 09/24/24 Ordered By: Don Mckinney Diet: Regular diet Activity on Discharge: As tolerated Stand Alone Forms: Patient Portal Discharge page Print Language: Belarusian Care Plan Goals: Maintain mood and safe behaviors Take medications as prescribed Continue to pursue sobriety Practice coping skills Continue with outpatient providers and reach out to them as needed Health Concerns: Mood stability and behaviors Sobriety Hypertension GERD Plan of Treatment: Follow up with your PCP, psychiatric provider and other outpatient providers regarding above concerns Take medications as prescribed Assessment: Risk assessment at time of discharge:? Patient was interviewed prior to discharge and found to be fully oriented and without any SI or HI. Patient has improved insight and judgment and wants to continue treatment. Patient is not in imminent risk of harm to self or others and has a safety plan that includes presenting to the closest ER or calling 911 if feeling unsafe.? Patient has been observed closely by nursing and unit staff throughout admission; patient has not engaged in any behaviors that suggest dangerousness to self or others and has demonstrated appropriate behaviors and impulse control
--- NOTE | 2024-09-27 17:39 | PC.NURSE ---
Consult to Comprehensive Care Received on 09/24/24. Dr. Anaya met with patient and offered recovery support services/options. Srinath declined information, feeling that there was no option available for Cocaine use disorder.
== END 2024-09-24 15:05 | disposition home or self-care (01) | DRG 885 ==
PROVIDERS: Admitting Provider Psychiatry & Neurology Psychiatry; Visit Provider Psychiatry & Neurology Psychiatry
DX: F33.1 Major depressive disorder, recurrent, moderate (principal); R45.851 Suicidal ideations; F17.210 Nicotine dependence, cigarettes, uncomplicated; E66.812 Obesity, class 2; Z71.3 Dietary counseling and surveillance; Z68.34 Body mass index [BMI] 34.0-34.9, adult; R60.0 Localized edema; F43.21 Adjustment disorder with depressed mood; I10 Essential (primary) hypertension; F14.90 Cocaine use, unspecified, uncomplicated; Z71.6 Tobacco abuse counseling; Z79.899 Other long term (current) drug therapy
CPT/HCPCS: 36415; 80053; 80061; 83036

== ENCOUNTER → 2024-09-23 15:27 | Outpatient (BNV) | payer SELFPAY | PROVIDERS: Admitting Provider Psychiatry & Neurology Psychiatry; Visit Provider Nurse Practitioner Psychiatric/Mental Health | DX: F14.90 Cocaine use, unspecified, uncomplicated (principal); F43.21 Adjustment disorder with depressed mood | CPT/HCPCS: 90792 ==

== ENCOUNTER → 2024-09-23 15:27 | Outpatient (BNV) | payer SELFPAY | PROVIDERS: Admitting Provider Psychiatry & Neurology Psychiatry; Visit Provider Physician Assistant | DX: Z00.8 Encounter for other general examination (principal); F17.200 Nicotine dependence, unspecified, uncomplicated; E66.812 Obesity, class 2 | CPT/HCPCS: 99221; 99222 ==